=== PATIENT | male | born 1960 | race Caucasian/White ===

== ENCOUNTER 2016-08-20 12:41 | Emergency (ER) | payer SELFPAY ==
[~2016-08-20 12:41] MED LIST: IBUP600 PO; LORTA5 PO
[2016-08-20 12:51] VITALS: BP 140/90; PULSE 100; RESP 14; TEMP 97.4; O2SAT 94
[2016-08-20] MEDS ORDERED: ACYCLOVIR 800 MG TAB PO ONE (13:15)
[2016-08-20] MEDS ORDERED: predniSONE 10 MG TAB PO ONE (13:15)
[2016-08-20] MEDS ORDERED: PRED20 PO (14:39)
[2016-08-20] MEDS ORDERED: WHIT15OI RIGHT EYE (14:39)
[2016-08-20] MEDS ORDERED: ACYC800T PO (14:39)
--- NOTE | 2016-08-20 14:39 | PD ---
HPI Chief Complaint: Neuro Symptoms/ Deficits Time Seen by Provider: 12:52 Travel History International Travel<30 days: No Contact w/Intl Traveler<30days: No Traveled to known affect area: No History of Present Illness HPI 56yo M with no PMH presents to the ED with c/o inability to move right face since last night at 6pm. Pt is unable to completely close right eye, raise right eyebrow and lift corner of right lip. Denies any fever, chest pain, sob, n/v, abdominal pain, focal weakness nor numbness. PFSH Past Medical History Cancer: No Cardiovascular Problems: No Diabetes: No Diminished Hearing: No Endocrine: No Genitourinary: No Hepatitis: No Hiatal Hernia: No Inguinal Hernia: Yes (LT INGUINAL) Musculoskeletal: No Neurologic: No Psychiatric: No Immunizations Current: Yes Thyroid Disease: No Tetanus Vaccination: > 5 Years Influenza Vaccination: No Past Surgical History AICD: No Joint Replacement: No Pacemaker: No Social History Alcohol Use: Yes (4 tall boys daily) Tobacco Use: Yes (1 PPD) Substance Use: Yes (MARIJUANA) Allergies-Medications (Allergen,Severity, Reaction): Coded Allergies: No Known Allergies (Verified , 08/20/16) Reported Meds & Prescriptions Reported Meds & Active Scripts Active Review of Systems Except as stated in HPI: all other systems reviewed are Neg Physical Exam Narrative GENERAL: 56yo M not in distress. SKIN: Warm and dry. HEAD: Atraumatic. Normocephalic. EYES: Pupils equal and round. No scleral icterus. No injection or drainage. ENT: No nasal bleeding or discharge. Mucous membranes pink and moist. NECK: Trachea midline. No JVD. CARDIOVASCULAR: Regular rate and rhythm. No murmur appreciated. RESPIRATORY: No accessory muscle use. Clear to auscultation. Breath sounds equal bilaterally. GASTROINTESTINAL: Abdomen soft, non-tender, nondistended. Hepatic and splenic margins not palpable. MUSCULOSKELETAL: No obvious deformities. No clubbing. No cyanosis. No edema. NEUROLOGICAL: Awake and alert. 7th nerve palsy. Inability to raise right eyebrow and raise right side of lip. sensation intact and equal bilaterally. Muscle strength 5/5 in all extremities. Sensation intact. PSYCHIATRIC: Appropriate mood and affect; insight and judgment normal. Data Data Last Documented VS Vital Signs Date Time Temp Pulse Resp B/P Pulse Ox O2 Delivery O2 Flow Rate FiO2 08/20/16 12:51 97.4 100 14 140/90 94 Orders Prednisone (Deltasone) (08/20/16 13:15) Acyclovir (Zovirax) (08/20/16 13:15) [facility] Medical Decision Making Medical Screen Exam Complete: Yes Emergency Medical Condition: Yes Differential Diagnosis Buchanan's palsy Narrative Course 56yo M with classic bells palsy presentation. Given prednisone 60mg and acyclovir. Return precautions given. Diagnosis Primary Impression: Buchanan's palsy Patient Instructions: General Instructions Departure Forms: Tests/Procedures Additional Instructions: Please follow up with your PMD in 1-2 days. Return to the ED if symptoms worsen. Med/Other Pt SpecificInfo: Prescription(s) given Scripts White Petrolatum-Mineral Oil Opth Oint 83-15% (Artificial Tears Opth Oint)83-15 % Oint1 Applic RIGHT EYE BID 7 Days Ref 0 Pull down lower eyelid & apply 1/4 inch to inside of eyelid. Prov:Estefanía Bhatt DO 08/20/16 Acyclovir 800 Mg Bvo225 Mg PO TID 7 Days Ref 0 Prov:Estefanía Bhatt DO 08/20/16 Prednisone 20 Mg Tab60 Mg PO DAILY 7 Days Ref 0 40 MG twice a day x 3 days, then 20 MG daily x 3 days, then 10 MG daily x 3 days Prov:Estefanía Bhatt DO 08/20/16 Disposition: 01 DISCHARGE HOME Condition: Stable Estefanía Bhatt DO Aug 20, 2016 14:39
--- NOTE | 2016-08-23 23:47 | EKG ---
Date Performed: 08/20/2016 Time Performed: 12:48:48 PTAGE: 56 years EKG: Sinus tachycardia Normal ECG except for rate NO PREVIOUS TRACING DOCTOR: Shon Chaparro Interpretating Date/Time 08/23/2016 23:45:51
== END 2016-08-20 14:48 | disposition home or self-care (01) ==
LOC: PHED 12:41
DX: G51.0 Bell's palsy (principal); F17.210 Nicotine dependence, cigarettes, uncomplicated; F12.90 Cannabis use, unspecified, uncomplicated
CPT/HCPCS: 93005; 99283; J7512